=== PATIENT | female | born 2000 | race Two or more races ===

== ENCOUNTER → 2022-09-07 | Emergency (ER) | payer OTHER ==
[~2022-09-07] VITALS: Ht 165.1 cm; Wt 75.3 kg
== END | disposition left against medical advice (07) ==
LOC: ER 14:32
DX: Z53.21 Procedure and treatment not carried out due to patient leaving prior to being seen by health care provider (principal)

== ENCOUNTER 2022-09-13 13:59 | Inpatient (IN) | payer OTHER ==
[~2022-09-13] VITALS: Ht 160 cm; Wt 90.7 kg
[2022-09-13] MEDS ORDERED: PRENATAL TABLE1 EAC1 PO (16:47)
[2022-09-13] MEDS ORDERED: IRON325 MG PO (16:47)
== END 2022-09-14 12:12 | disposition home or self-care (01) | DRG 833 ==
LOC: LDR 13:59
PROVIDERS: ADMIT Specialist; ATTEND Specialist
PROC: 30233N1 Transfusion of Nonautologous Red Blood Cells into Peripheral Vein, Percutaneous Approach (ICD-10-PCS; principal; 2022-09-13)
PROC: 4A1HXCZ Monitoring of Products of Conception, Cardiac Rate, External Approach (ICD-10-PCS; 2022-09-13)
DX: O99.013 Anemia complicating pregnancy, third trimester (principal); D50.0 Iron deficiency anemia secondary to blood loss (chronic); Z3A.32 32 weeks gestation of pregnancy; Z20.822 Contact with and (suspected) exposure to COVID-19

== ENCOUNTER 2022-10-16 14:52 | Outpatient (CLI) | payer OTHER ==
[~2022-10-16 14:52] MED LIST: IRON325 MG PO; PRENATAL TABLE1 EAC1 PO
== END 2022-10-17 14:23 | disposition home or self-care (01) ==
LOC: OBS/DEL 14:52
PROVIDERS: ATTEND Specialist
DX: O41.03X0 Oligohydramnios, third trimester, not applicable or unspecified (principal); Z3A.35 35 weeks gestation of pregnancy; Z91.013 Allergy to seafood

== ENCOUNTER 2022-11-06 09:28 | Inpatient (IN) | payer OTHER ==
[~2022-11-06] VITALS: Ht 162.6 cm; Wt 92.5 kg
== END 2022-11-08 14:10 | disposition home or self-care (01) | DRG 788 ==
LOC: LDR 09:28 → OB/GYN 09:28 → O/R 20:06 → OB/GYN 23:56
PROVIDERS: ADMIT Specialist; ATTEND Specialist
PROC: 3E033VJ Introduction of Other Hormone into Peripheral Vein, Percutaneous Approach (ICD-10-PCS; 2022-11-06)
PROC: 3E0P7VZ Introduction of Hormone into Female Reproductive, Via Natural or Artificial Opening (ICD-10-PCS; 2022-11-06)
PROC: 4A1HXCZ Monitoring of Products of Conception, Cardiac Rate, External Approach (ICD-10-PCS; 2022-11-06)
PROC: 10D00Z1 Extraction of Products of Conception, Low, Open Approach (ICD-10-PCS; principal; 2022-11-06 19:00)
DX: O61.0 Failed medical induction of labor (principal); Z3A.38 38 weeks gestation of pregnancy; Z37.0 Single live birth; Z20.822 Contact with and (suspected) exposure to COVID-19

== ENCOUNTER 2023-12-05 20:38 | Outpatient (CLI) | payer OTHER ==
[2023-12-05] MEDS ORDERED: RINGERS SOLUTION,LACTATED 1,000 ML IV SCH (20:45)
[2023-12-05 21:00] LABS: HEMATOCRIT 30.2 % (36.0-45.00); HEMOGLOBIN 10.2 g/dL (12.0-15.00); MEAN CELL VOLUME 78.9 fL (80.00-100.00); MEAN CORPUSCULAR HEMOGLOBIN 26.7 pg (27.00-32.0); MEAN CORPUSCULAR HGB CONC 33.8 g/dl (32.0-36.0); PLATELET COUNT 373 K/uL (150-450); RED BLOOD COUNT 3.83 M/uL (4.00-6.00); RED CELL DISTRIBUTION WIDTH 16.1 % (11.5-14.5)
[2023-12-05 21:01] LABS: URINE APPEARANCE Clear; URINE BILIRRUBIN Negative (NEGATIVE); URINE BLOOD Moderate; URINE COLOR Yellow; URINE GLUCOSE Negative (NEGATIVE); URINE LEUKOCYTE Small; URINE NITRATE Negative; URINE PROTEIN Negative (NEGATIVE); URINE UROBILINOGEN 0.2 E.U./dl
[2023-12-05 21:05] LABS: URINE BACTERIA 235.6 uL (0.0-1933); URINE EPITHELIAL CELLS 9.1 uL (0.0-38.8); URINE RBC 3.5 uL (0.0-20.8); URINE WBC 11.1 uL (0.0-23.2)
== END 2023-12-06 16:19 | disposition home or self-care (01) ==
LOC: OBS/DEL 20:38
PROVIDERS: Obstetrics & Gynecology; ATTEND Specialist
DX: O26.892 Other specified pregnancy related conditions, second trimester (principal); Z3A.20 20 weeks gestation of pregnancy